=== PATIENT | male | born 1970 | race African-American/Black ===

== ENCOUNTER 2020-01-31 15:26 | Emergency (ER) | payer OTHER ==
[2020-01-31 15:49] VITALS: BP 126/87; PULSE 87; TEMP 98.1; BMI 26.2
[2020-01-31] MEDS ORDERED: ACETAMINOPHEN 325 MG TABLET (FP) PO ONE (16:21)
[2020-01-31] MEDS ORDERED: ACETAMINOPHEN 500 MG TABLET (FP) ONE (16:27)
--- NOTE | 2020-01-31 16:37 | PDOC ---
History of Present Illness - General Chief Complaint: Cold Symptoms Stated Complaint: CHEST PAIN Time Seen by Provider: 01/31/20 16:01 History Source: Patient Exam Limitations: No Limitations Past History - Travel Traveled outside of the country in the last 30 days: No Close contact w/someone who was outside of country & ill: No - Past Medical History Allergies/Adverse Reactions: Allergies Allergy/AdvReac Type Severity Reaction Status Date / Time No Known Drug Allergies Allergy Verified 01/14/15 19:26 Home Medications: Ambulatory Orders NK [No Known Home Medication] 01/14/15 Anemia: No Asthma: No Cancer: No Cardiac Disorders: No CVA: No COPD: No CHF: No Dementia: No Diabetes: No GI Disorders: No Disorders: No HTN: No Hypercholesterolemia: No Liver Disease: No Seizures: No Thyroid Disease: No - Surgical History Gastric Stapling: No Neurologic Surgery: No - Immunization History Td Vaccination: Yes - Psycho Social/Smoking Cessation Hx Smoking Status: No Smoking History: Never smoked Years of Tobacco Use: 0 Have you smoked in the past 12 months: No Number of Cigarettes Smoked Daily: 0 Cigars Per Day: 0 Information on smoking cessation initiated: No Hx Alcohol Use: No Drug/Substance Use Hx: No Substance Use Type: None Hx Substance Use Treatment: No Review of Systems - Review of Systems Able to Perform ROS?: Yes Comments:: 01/31/20 16:35 CONSTITUTIONAL: Absent: fever, chills, diaphoresis, generalized weakness, malaise, loss of appetite HEENT: Absent: rhinorrhea, nasal congestion, throat pain, throat swelling, difficulty swallowing, mouth swelling, ear pain, eye pain, visual Changes CARDIOVASCULAR: Absent: chest pain, loss of consciousness, palpitations, irregular heart rate, peripheral edema RESPIRATORY: Absent: cough, shortness of breath, dyspnea with exertion, orthopnea, wheezing, stridor, hemoptysis GASTROINTESTINAL: Absent: abdominal pain, abdominal distension, nausea, vomiting, diarrhea, constipation, melena, hematochezia GENITOURINARY: Absent: dysuria, frequency, urgency, hesitancy, hematuria, flank pain, genital pain MUSCULOSKELETAL: Present: Chest wall pain absent: myalgia, arthralgia, joint swelling SKIN: Absent: rash, itching, pallor HEMATOLOGIC/IMMUNOLOGIC: Absent: easy bleeding, easy bruising, lymphadenopathy, frequent infections ENDOCRINE: Absent: unexplained weight gain, unexplained weight loss, heat intolerance, cold intolerance NEUROLOGIC: Absent: headache, focal weakness or paresthesias, dizziness, unsteady gait, seizure, mental status changes, bladder or bowel incontinence PSYCHIATRIC: Absent: anxiety, depression, suicidal or homicidal ideation, hallucinations. Is the patient limited Tu[place]uan proficient: No *Physical Exam - Vital Signs Last Vital Signs Temp Pulse Resp BP Pulse Ox 98.1 F 87 18 126/87 100 01/31/20 15:45 01/31/20 15:45 01/31/20 15:45 01/31/20 15:45 01/31/20 15:45 - Physical Exam 01/31/20 16:35 GENERAL: Well developed, well nourished. Awake and alert. No acute distress. HEENT: Normocephalic, atraumatic. PERRLA, EOMI. No conjunctival pallor. Sclera are non- icteric. Moist mucous membranes. Oropharynx is clear. NECK: Supple. Full ROM. No JVD. Carotid pulses 2+ and symmetric, without bruits. No thyromegaly. No lymphadenopathy. CARDIOVASCULAR: Regular rate and rhythm. No murmurs, rubs, or gallops. Distal pulses are 2+ and symmetric. PULMONARY: No evidence of respiratory distress. Lungs clear to auscultation bilaterally. No wheezing, rales or rhonchi. ABDOMINAL: Soft. Non-tender. Non-distended. No rebound or guarding. No organomegaly. Normoactive bowel sounds. MUSCULOSKELETAL Normal range of motion at all joints. No bony deformities or tenderness. No CVA tenderness. EXTREMITIES: No cyanosis. No clubbing. No edema. No calf tenderness. SKIN: Warm and dry. Normal capillary refill. No rashes. No jaundice. NEUROLOGICAL: Alert, awake, appropriate. Cranial nerves 2-12 intact. No deficits to light touch and temperature in face, upper extremities and lower extremities. No motor deficits in the in face, upper extremities and lower extremities. Normoreflexic in the upper and lower extremities. Normal speech. Toes are down-going bilaterally. Gait is normal without ataxia. PSYCHIATRIC: Cooperative. Good eye contact. Appropriate mood and affect. ED Treatment Course - RADIOLOGY Radiology Studies Ordered: Category Date Time Status CHEST PA & LAT [RAD] Stat Radiology 01/31/20 16:08 Ordered - Medications Given in the ED: ED Medications Discontinued Medications Generic Name Dose Route Start Last Admin Trade Name Freq PRN Reason Stop Dose Admin Acetaminophen 1,000 mg 01/31/20 16:21 01/31/20 16:29 Tylenol - PO 01/31/20 16:22 1,000 mg ONCE ONE Administration Medical Decision Making - Medical Decision Making 01/31/20 20:19 The patient is a 49-year-old male no past medical history who presents to the ER with right-sided chest wall pain. He states that he was at work in a meeting today where someone was smoking cigarettes. He states that the smoking made him cough violently. After coughing he noticed he had some chest pain which is worse with coughing. He states that he feels better after leaving the room that had smoke in it. Denies difficulty breathing, lightheadedness, dizziness, palpitations, shortness of breath and loss of consciousness. A/P: Atypical chest pain On exam patient with reproducible chest pain with deep breath, lateral to the right sternum. EKG shows normal sinus rhythm with a rate of 85 bpm, normal intervals and axis. No acute ST-T wave changes. X-ray shows no acute pathology. Likely a intercostal muscle strain given the violent episode of coughing. We will recommend Tylenol and have patient follow-up with his primary care doctor. Strict return precautions given. I discussed the physical exam findings, ancillary test results and final juan jose gnoses with the patient. I answered all of the patient's questions. The patient was satisfied with the care received and felt comfortable with the discharge plan and treatment plan. The Patient agrees to follow up with the primary care physician/specialist within 24-72 hours. Return precautions were given. Discharge - Discharge Information Problems reviewed: Yes Clinical Impression/Diagnosis: Chest wall pain Condition: Stable Disposition: HOME - Admission No - Follow up/Referral Referrals: [facility] [place] [facility] [Provider Group] - Patient Discharge Instructions Patient Printed Discharge Instructions: DI for Atypical Chest Pain Additional Instructions: Your evaluated for your chest pain today. You most likely strained a muscle in between your ribs. Your chest x-ray and EKG were normal today. You may take Tylenol thousand milligrams every 6 hours as needed for pain. Please follow-up with your primary care doctor this week. Return to the ER for worsening chest pain, lightheadedness, dizziness, difficulty breathing or if you have any changes in your symptoms. - Post Discharge Activity Work/Back to School Note: Back to Work
--- NOTE | 2020-02-01 10:18 | EKG ---
Test Reason : Blood Pressure : / mmHG Vent. Rate : 085 BPM Atrial Rate : 085 BPM P-R Int : 164 ms QRS Dur : 090 ms QT Int : 366 ms P-R-T Axes : 065 014 048 degrees QTc Int : 435 ms NORMAL SINUS RHYTHM POSSIBLE LEFT ATRIAL ENLARGEMENT BORDERLINE ECG NO PREVIOUS ECGS AVAILABLE Confirmed by Alex Richter ([id number]) on 02/01/2020 10:17:41 AM Referred By: Confirmed By:Alex Richter
== END 2020-01-31 16:45 | disposition home or self-care (01) ==
LOC: JERFT 15:26
DX: R07.89 Other chest pain (principal)
CPT/HCPCS: 71046-TC-FY; 93005; 93010; 99284-25